=== PATIENT | female | born 1975 | race Hispanic/Latino ===

== ENCOUNTER 2024-07-14 16:44 | Emergency (ER) | payer MEDICAID, SELFPAY ==
[2024-07-14 16:47] VITALS: BP 129/74; PULSE 57; RESP 16; TEMP 36.3; O2SAT 97; BMI 30.8
--- NOTE | 2024-07-14 18:40 | EDS_ITS ---
HPI History of Present Illness Chief Complaint: Ear Problem Informant: patient Narrative Narrative: Use of finishing area supervisor application was utilized (provided by the hospital). Patient tells me about 3 weeks ago she was seen in emergency department (does not appear to be here) was treated with eardrops and an unknown antibiotic.. She said she got better but pain has returned. She notes decreased hearing in the right ear continued pain headache and now discomfort in the left ear. She denies any fevers or rhinorrhea no significant cough. She denies any known medical problems [facility] Home Medications ?Medication ?Instructions ?Recorded ?Last Taken ?Type ciprofloxacin 0.3 %-dexamethasone 4 drp EACH EAR BID 7 days #7.5 mL 07/14/24 Unknown Rx 0.1 % ear drops,suspension (Ciprodex) Social History Smoking Status: Never smoker ROS ROS ED Constitutional Constitutional ED: Denies chills or weight loss Eyes Eyes: Denies change in vision or diplopia ENT ENT ED: Reports ear pain and other Details: Decreased hearing ; Denies rhinorrhea or sore throat Cardiovascular Cardiovascular: Denies chest pain, orthopnea, palpitations or racing heartbeat Respiratory/Chest Respiratory/Chest: Denies cough, dyspnea or orthopnea Gastrointestinal Gastrointestinal: Denies abdominal pain, diarrhea, nausea or vomiting Genitourinary Genitourinary ED: Denies dysuria, hematuria or urinary frequency Musculoskeletal Musculoskeletal: Denies arthralgias or myalgias Integumentary Denies abscess or rash Neurologic Neurologic: Reports headache(s); Denies weakness Psychiatric Psychiatric: Denies anxiety, depression, suicidal ideation or suicidal thoughts Endocrine Endocrinology: Denies polydipsia, polyphagia or polyuria Allergic/Immunologic Allergic/Immunologic ED: Denies mouth swelling, tongue swelling or urticaria EXAM Physical Exam Const Vital Signs: 07/14/24 16:47 Temperature 97.4 F L Temperature Source Oral Pulse Rate 57 L Respiratory Rate 16 Blood Pressure 129/74 H Blood Pressure Mean 92 Pulse Ox 97 Oxygen Delivery Method Room Air Positive well nourished and well developed General Appearance ED: well developed HEENT Reports normocephalic, head/scalp atraumatic and moist mucous membranes HEENT Narrative: Cerumen impaction of the right ear. There is some mild swelling left ear canal. Pain with movement of the ear. Tympanic membrane obscured. No mastoid tenderness. No overlying skin erythema. Left tympanic membrane appears normal. Ear canal appears normal Eyes PERRL and EOMs intact bilaterally Neck no lymphadenopathy, supple and no JVD Resp normal respiratory effort and clear to auscultation bilaterally Cardio regular rate, regular rhythm and no murmurs GI normal to inspection, nondistended, normoactive bowel sounds and non-tender Palpation: soft Back/Spine no CVA tenderness and normal ROM Extremity normal to inspection General Extremety ED: Negative for edema General Extremity: Negative for edema Neuro oriented x3 and CN's II-XII intact bilaterally Sensorium / Orientation: alert Motor Exam: strength 5/5 throughout Psych mental status grossly normal Mood & Affect: Negative for depressed or tearful Skin no rashes or lesions noted and no wounds MDM MDM MDM Narrative Medical decision making narrative: Differential diagnosis includes but not limited to otitis media viral syndrome mastoiditis otitis externa cerumen impaction perforated tympanic membrane The right ear canal was irrigated by nursing with removal of large amount of cerumen. The patient was starting to leave the emergency department when I stop and talk with her and asked if I could really evaluate her ears now that the cerumen has been removed. The ear canal itself appears swollen and edematous. Tympanic membrane appears intact and without erythema. Patient will be started on Ciprodex. If she has continued symptoms unguinal recommend follow-up with ENT. Patient notes understanding the plan History & Record Review Discussion w/independent historian: Patient Discharge Plan Triage Chief Complaint: Ear Problem ED Provider: Mateo Rao Dx/Rx/DC Orders Clinical Impression: Cerumen impaction, Otitis externa Instructions: ED Cerumen Impaction Treated, ED External Ear Infection (Adult) Prescriptions: New ciprofloxacin-dexamethasone [Ciprodex] 0.3-0.1 % drops,suspension 4 drp EACH EAR BID 7 Days Qty: 7.5 0RF Primary Care Provider: Care Physician,No Primary Referrals: Wolf Gunderson MD [Med Staff - Active Staff] - 1 Week Care Physician,No Primary [Primary Care Provider] - Print Language: Salvadorean Disposition Disposition: Home, Self Care Discharge Date/Time: 07/14/24 20:06
== END 2024-07-14 20:06 | disposition home or self-care (01) ==
PROVIDERS: Emergency Provider Emergency Medicine; Visit Provider Emergency Medicine
DX: H60.90 Unspecified otitis externa, unspecified ear (principal); R51.9 Headache, unspecified; H61.21 Impacted cerumen, right ear
CPT/HCPCS: 69209; 99283

== ENCOUNTER 2025-04-26 16:44 | Emergency (ER) | payer MEDICAID, SELFPAY ==
[2025-04-26 16:45] VITALS: BP 117/78; PULSE 76; RESP 16; TEMP 36.7; O2SAT 96
--- NOTE | 2025-04-26 17:30 | EX.ED.DYSGE1 ---
HPI History of Present Illness Chief Complaint: Ear Problem Informant: patient Narrative Narrative: Patient is a 49-year-old female with no stated past medical history presenting with 1 week of worsening left jaw and ear pain as well as swelling. States she has decreased hearing in and out of her left ear. States she had subjective fevers yesterday. Has been alternating ibuprofen and Tylenol with minimal relief of her pain. States she had something similar last time she was in the ER and needed her ear cleared out. The pain does radiate to her throat but she denies any difficulty swallowing. Does have increased pain with chewing. No rash or skin changes. No recent swelling reported. Denies any drainage from her ear. Denies any dental pain. No other complaints or concerns at this time. Denies any nausea or vomiting. Formal rag shredder used. [facility] Home Medications ?Medication ?Instructions ?Recorded ?Last Taken ?Type amoxicillin 875 mg-potassium 1 tab PO BID #14 tabs 06/21/24 Unknown Rx clavulanate 125 mg tablet ciprofloxacin 0.3 %-dexamethasone 4 drp RIGHT EAR BID 7 days #7.5 mL 06/21/24 Unknown Rx 0.1 % ear drops,suspension ciprofloxacin 0.3 %-dexamethasone 4 drp EACH EAR BID 7 days #7.5 mL 07/14/24 Unknown Rx 0.1 % ear drops,suspension (Ciprodex) amoxicillin 875 mg-potassium 1 tab PO Q12H #13 tabs 04/26/25 Unknown Rx clavulanate 125 mg tablet ibuprofen 600 mg tablet 600 mg PO Q6H PRN PRN pain #20 04/26/25 Unknown Rx TABLETS [id number]-[id number]-fkpjkyrwd 3.5 4 drp LEFT EAR Q8H 5 days #10 mL 04/26/25 Unknown Rx mg-10,000 unit/mL-1 % ear drops,susp Allergy/AdvReac Type Severity Reaction Status Date / Time No Known Allergies Allergy Verified 04/26/25 16:49 Social History Smoking Status: Never smoker ROS ROS ED Constitutional Constitutional ED: Reports fever(s) and subjective; Denies chills Eyes Eyes: Denies blurry vision or change in vision ENT ENT ED: Reports ear pain left and other Details: left sided jaw/neck swelling ; Denies rhinorrhea or sore throat Cardiovascular Cardiovascular: Denies chest pain Respiratory/Chest Respiratory/Chest: Denies cough Gastrointestinal Gastrointestinal: Denies nausea or vomiting Integumentary Denies rash Neurologic Neurologic: Denies weakness EXAM Physical Exam Const Vital Signs: 04/26/25 16:45 Temperature 98.0 F Temperature Source Oral Pulse Rate 76 Respiratory Rate 16 Blood Pressure 117/78 Blood Pressure Mean 91 Pulse Ox 96 Positive well nourished and well developed General Appearance ED: well developed and NAD HEENT Reports moist mucous membranes HEENT Narrative: No trismus. No malocclusion. Slight swelling of the preauricular area with tenderness palpation of the right ear and some slight swelling of the right ear canal however no drainage is noted. No cerumen impaction noted. Visualized tympanic membrane is pearly. Do not appreciate any obvious air-fluid level. No redness to the ear consistent with perichondritis. Is able to hear crinkling of gloved fingers with both ears but she states it is louder on the right compared to the left. There is some swelling at the angle of the mandible on the left and associated lymph node swelling of the anterior left lateral neck. No overlying skin changes or redness. Normal oropharynx. Normal dental exam with no gingival or buccal swelling appreciated. Eyes PERRL Neck supple and no JVD Neck Narrative: Lymphadenopathy of the left anterior superior cervical chain and tenderness. Normal range of motion of the neck Chest Wall inspection of chest normal Resp normal respiratory effort and clear to auscultation bilaterally Cardio regular rate and regular rhythm Neuro oriented x3 and CN's II-XII intact bilaterally Psych mental status grossly normal Skin no rashes or lesions noted and no wounds MDM MDM MDM Narrative Medical decision making narrative: Patient valuated for swelling and pain of the left ear/jaw. Differential includes otitis externa, otitis media, lymphadenitis and parotitis. She has a normal oropharyngeal exam I do not think this is referred throat pain/strep throat. Patient will be treated with Augmentin I suspect this is parotitis versus lymphadenitis. She will be placed on otic drops for some possible associated otitis media she does have a lot of discomfort on otoscopic exam. Is prescribed Motrin 600 mg for pain control. Is given referral for ENT for follow-up. Given return precautions. Discharged home in stable condition. Patient overall well-appearing no systemic symptoms and normal vital signs. Discharge Plan Triage Chief Complaint: Ear Problem ED Provider: Anuradha Edwards Dx/Rx/DC Orders Clinical Impression: Acute parotitis, Acute otitis externa of left ear Instructions: ED Salivary Gland Infection, ED External Ear Infection (Adult) Prescriptions: New amoxicillin-pot clavulanate 875-125 mg tablet 1 tab PO Q12H Qty: 13 0RF hyebcacm-bwunckdzq-MZ 3.5-10,000-1 mg/mL-unit/mL-% drops,suspension 4 drp LEFT EAR Q8H 5 Days Qty: 10 0RF ibuprofen 600 mg tablet 600 mg PO Q6H PRN PRN (Reason: pain) Qty: 20 0RF No Action amoxicillin-pot clavulanate 875-125 mg tablet 1 tab PO BID Qty: 14 0RF ciprofloxacin-dexamethasone 0.3-0.1 % drops,suspension 4 drp RIGHT EAR BID 7 Days Qty: 7.5 0RF ciprofloxacin-dexamethasone [Ciprodex] 0.3-0.1 % drops,suspension 4 drp EACH EAR BID 7 Days Qty: 7.5 0RF Primary Care Provider: Care Physician,No Primary Referrals: Wolf Gunderson MD [Med Staff - Active Staff] - Care Physician,No Primary [Primary Care Provider] - Print Language: Guyanese Disposition Disposition: Home, Self Care
== END 2025-04-26 18:01 | disposition home or self-care (01) ==
PROVIDERS: Emergency Provider Emergency Medicine; Visit Provider Emergency Medicine
DX: H60.92 Unspecified otitis externa, left ear (principal); K11.21 Acute sialoadenitis
CPT/HCPCS: 99283